=== PATIENT | female | born 1990 ===

== ENCOUNTER 2021-04-06 22:08 | Emergency (ER) | payer SELFPAY ==
[~2021-04-06] VITALS: Ht 165.1 cm; Wt 61.9 kg
[2021-04-06 22:09] VITALS: BP 127/83
[2021-04-06] MEDS ORDERED: IBUP80TA PO (22:17)
== END 2021-04-06 23:20 | disposition left against medical advice (07) ==
LOC: M ED 22:08
DX: Z53.21 Procedure and treatment not carried out due to patient leaving prior to being seen by health care provider (principal)